=== PATIENT | female | born 1960 | race Caucasian/White ===

== ENCOUNTER 2018-01-14 08:29 | Emergency (ER) | payer BC ==
[~2018-01-14] VITALS: Ht 160 cm; Wt 100.0 kg
[2018-01-14] MEDS ORDERED: HYDROCODONE/ACETAMINOPHEN 5/325MG TABLET PO ONE (10:30)
[2018-01-14] MEDS ORDERED: KETOROLAC 60MG/2ML VIAL IM ONE (12:15)
[2018-01-14 13:06] VITALS: BP 121/71
== END 2018-01-14 13:40 | disposition home or self-care (01) ==
LOC: ER 08:29
DX: S20.221A Contusion of right back wall of thorax, initial encounter (principal); R07.89 Other chest pain; K21.9 Gastro-esophageal reflux disease without esophagitis; J44.9 Chronic obstructive pulmonary disease, unspecified; G47.30 Sleep apnea, unspecified; Z88.0 Allergy status to penicillin; Z98.890 Other specified postprocedural states; Z88.3 Allergy status to other anti-infective agents; W01.190A Fall on same level from slipping, tripping and stumbling with subsequent striking against furniture, initial encounter; Y93.89 Activity, other specified; Y92.520 Airport as the place of occurrence of the external cause
CPT/HCPCS: 71101; 96372; 99284; J1885